=== PATIENT | male | born 1965 | race Caucasian/White ===

== ENCOUNTER → 2021-07-19 | Outpatient (CLI) | payer OTHER ==
[~2021-07-19] MED LIST: ASPIR 8181 MG PO; COREG 3.125M3.125 MG PO; FISH OIL 1,0001 EACH PO; LEVAQUIN500 MG PO; PEPCID20 MG PO; PRINIVIL5 MG PO; THERAGRAN M TAB1 EA PO; TYLENOL W/CODEIN1 E1 PO; VITAMIN C1000 MG PO
== END ==
LOC: HEART 5 07-08 08:30
DX: R06.00 Dyspnea, unspecified (principal); I51.7 Cardiomegaly
CPT/HCPCS: 78452; 93306; A9502; J2785